=== PATIENT | male | born 1970 ===

== ENCOUNTER 2021-08-11 16:30 | Inpatient (IN) | payer MEDICARE, BC ==
[~2021-08-11] VITALS: Ht 172.7 cm; Wt 87.5 kg
[2021-08-11] VITALS (138 sets, daily range): BP systolic 102–143; BP diastolic 64–105; PULSE 93–115; TEMP 98.3–99.1; O2SAT 64–100
--- NOTE | 2021-08-11 17:15 | NUR ---
PATIENT ARRIVES. DR. CHADWICK NOTIFIED AND , NICHOLE, BROUGHT INTO THE ROOM
--- NOTE | 2021-08-11 18:05 | NUR ---
PATIENT LEAVES FOR OPERATING ROOM AT THIS TIME. DR. CHADWICK HAS DISCUSSED PROCEDURE WITH BOTH PATIENT AND . CONSENT SIGNED. TING WITH ANESTHESIA HERE AT THIS TIME WELL.
--- NOTE | 2021-08-11 19:27 | NUR ---
REPORT GIVEN TO SUDEEP JACKMAN. PATIENT STILL IN OPERATING ROOM
--- NOTE | 2021-08-11 19:45 | NUR ---
1935 PATIENT ARRIVED TO UNIT AT THIS TIME, CONNECTED TO MONITORS AND ORIENTED TO ROOM ASSESSMENT COMPLETED AT THIS TIME
[2021-08-12] VITALS (419 sets, daily range): BP systolic 99–123; BP diastolic 49–85; PULSE 89–115; TEMP 98.5–101.1; O2SAT 87–100
--- NOTE | 2021-08-12 | NUR ---
URINE OUTPUT ADEQUATE, NOTED DARK YELLOW TO HERMELINDA COLOR WITH SCANT AMOUNT OF BLOODY DRAINAGE FROM TIP OF PENIS, NOTED EDEMA AND EXCORATION REMAIN TO PENIS, CLEANSED WITH BATH
[2021-08-12 01:25] LABS: HEMATOCRIT 40.3 % (42.0-52.0); HEMOGLOBIN 13.5 g/dl (13.5-18.0); MEAN CELL VOLUME 81 fl (80.0-100.0); MEAN CORPUSCULAR HEMOGLOBIN 27 pg (27.0-31.0); MEAN CORPUSCULAR HGB CONC 34 g/dl (33.0-37.0); MEAN PLATELET VOLUME 9.4 fl (7.4-10.4); PLATELET COUNT 216 K/mm3 (130-400); RED BLOOD COUNT 4.96 M/mm3 (4.20-5.60); REDCELL DISTRIBUTION WIDTH-CV 13.2 % (11.5-14.5)
[2021-08-12 01:44] LABS: ALBUMIN 2.8 gm/dL (3.5-5.0); BILIRUBIN,TOTAL 1.8 mg/dL (0.2-1.2); CALCIUM 8.6 mg/dL (8.4-10.2); CREATININE, serum 1.37 mg/dL (0.72-1.25); POTASSIUM 3.7 mmol/L (3.5-4.5); TOTAL PROTEIN 6.9 gm/dL (6.2-8.1)
[2021-08-12 02:09] LABS: BAND 1 % (0-10); EOSINOPHIL 6 % (0-4); LYMPHOCYTE 2 % (20.0-51.0); NEUTROPHILS 87 % (42.0-75.2); PLATELET ESTIMATE NORMAL (NORMAL)
[2021-08-12 05:45] LABS: COLLECTION METHOD CATHETER
[2021-08-12 05:52] LABS: MUCOUS Present /lpf; PH 5 (5-8); SQUAMOUS EPITHELIAL 0-2 /hpf; URINE APPEARANCE Hazy; URINE BACTERIA Rare /hpf; URINE BILIRUBIN Negative (NEGATIVE); URINE BLOOD 3+ (NEGATIVE); URINE COLOR Yellow; URINE GLUCOSE Negative (NEGATIVE); URINE KETONE Trace (NEGATIVE); URINE LEUKOCYTE ESTERASE 2+ (NEGATIVE); URINE NITRATE Negative (NEGATIVE); URINE PROTEIN(semi-quant) 1+ (NEGATIVE); URINE RBC 20-50 /hpf
[2021-08-12 06:56] LABS: BASO # 0.1 K/mm3 (0.0-0.2); BASO % 0.5 % (0.0-2.0); EOS % 0.1 % (0-4.0); GRAN # 11.5 K/mm3 (1.4-6.5); GRAN % 86.6 % (42.2-75.2); HEMATOCRIT 43.3 % (42.0-52.0); HEMOGLOBIN 13.6 g/dl (13.5-18.0); LYMPH # 0.8 K/mm3 (1.2-3.4); LYMPH % 6.2 % (20.0-51.0); MEAN CORPUSCULAR HEMOGLOBIN 28 pg (27.0-31.0); MEAN CORPUSCULAR HGB CONC 31 g/dl (33.0-37.0); MEAN PLATELET VOLUME 9.5 fl (7.4-10.4); MONO # 0.8 K/mm3 (0.1-0.6); MONO % 6.2 % (1.7-9.3); PLATELET COUNT 169 K/mm3 (130-400); RED BLOOD COUNT 4.92 M/mm3 (4.20-5.60); REDCELL DISTRIBUTION WIDTH-CV 13.4 % (11.5-14.5)
[2021-08-12 06:57] LABS: MEAN CELL VOLUME 88 fl (80.0-100.0)
[2021-08-12 07:21] LABS: CALCIUM 7.8 mg/dL (8.4-10.2); CREATININE, serum 1.27 mg/dL (0.72-1.25); POTASSIUM 3.7 mmol/L (3.5-4.5)
--- NOTE | 2021-08-12 14:22 | NUR ---
REPORT CALLED TO SUDEEP DOUGLASS. PATIENT TAKEN UP TO ROOM 354. DANILO FROM SOCIAL WORK STATES THAT SHE WILL CALL WITH UPDATE ON ROOM TRANSFER.
--- NOTE | 2021-08-12 14:23 | NUR ---
Discussion with ; please use the assumed pain scale states "he will clinch his face, feet and legs" this will indicate pain. "Do not let him over eat, no coffee will cause diarrhea". does not allow corn in his diet. Catia: [phone]
--- NOTE | 2021-08-12 15:28 | NUR ---
Family Practice Md contacted patient's , Catia (ph#[phone]) to discuss discharge planning. Patient and Catia live in [place] and patient's primary care physician is Dr. Dan. Catia advised that patient was not on any normal prescriptions prior to hospital stay. Patient has a wheelchair, hospital bed, and sit to stand lift at home. Catia reported that home health evaluated patient recently and he currently is not able to stand at all. Catia advised her daughter, Yin (ph#[phone]) will be bringing in copy of DP-, which designates Catia then their two daughters, Yin and Eli. Catia advised they are looking at placement at a intermediate facility for rehab but ultimately believe patient will need intermediate designer care. Catia reported they were working on medicaid, however have too much money at this time due to an inheritance they recently received. Catia does not feel [facility] will be able to meet patient's needs but is interested in having referrals sent to the three SNFs in [place]. ELIU advised Catia that if the [place] facilities cannot accept or do not have intermediate designer care available, referrals will need to be sent out of town. ELIU contacted [facility] and faxed referral. ELIU contaced [facility] and was advised they do not accept TBI's. Discharge Plan: [facility] referrals pending.
--- NOTE | 2021-08-12 18:49 | NUR ---
PT LAYING IN BED AT THIS TIME. DENIES ANY PAIN. STATES HE DOES NOT NEED ANYTHING. NO FURTHER CONCERN WILL GIVE REPORT TO INDUSTRIAL RELATIONS ANALYST RN.
--- NOTE | 2021-08-12 19:01 | NUR ---
REPORT GIVEN TO SUDEEP RAYMOND .
--- NOTE | 2021-08-12 19:50 | NUR ---
Patient is in bed at 45 degrees and mostly on his rigth side. He is alert but partially oriented. VSS. No signs of pain He denies. Tele and pierson in place. Yellow clear output. Patient can not move the left side of his body, but independent for drinking and eating with his right side. Assessment completed, meds provided. No further needs at this time. Call [facility] within reach.
--- NOTE | 2021-08-12 21:00 | NUR ---
PT reports temp of 101. Tylenol provided.
[2021-08-13 01:03] VITALS: BP 117/57; PULSE 90; TEMP 99.3
[2021-08-13 04:32] VITALS: BP 114/62; PULSE 83; TEMP 97.8
[2021-08-13 06:41] LABS: BASO % 0.5 % (0.0-2.0); EOS # 0.1 K/mm3 (0.0-0.7); EOS % 0.6 % (0-4.0); GRAN # 6.4 K/mm3 (1.4-6.5); GRAN % 79.5 % (42.2-75.2); LYMPH # 0.8 K/mm3 (1.2-3.4); LYMPH % 9.8 % (20.0-51.0); MEAN CORPUSCULAR HGB CONC 33 g/dl (33.0-37.0); MEAN PLATELET VOLUME 10.1 fl (7.4-10.4); MONO # 0.7 K/mm3 (0.1-0.6); MONO % 8.9 % (1.7-9.3); PLATELET COUNT 170 K/mm3 (130-400); RED BLOOD COUNT 4.25 M/mm3 (4.20-5.60); REDCELL DISTRIBUTION WIDTH-CV 13.4 % (11.5-14.5)
--- NOTE | 2021-08-13 06:45 | NUR ---
Patient has been stable. He didnt have more caitlin temperature. All needs met. Shift report given to day nurse.
[2021-08-13 06:48] LABS: HEMATOCRIT 35.3 % (42.0-52.0); MEAN CELL VOLUME 83 fl (80.0-100.0); MEAN CORPUSCULAR HEMOGLOBIN 27 pg (27.0-31.0)
[2021-08-13 06:54] LABS: HEMOGLOBIN 11.6 g/dl (13.5-18.0)
[2021-08-13 07:01] LABS: CALCIUM 7.9 mg/dL (8.4-10.2); CREATININE, serum 0.9 mg/dL (0.72-1.25); POTASSIUM 3.1 mmol/L (3.5-4.5)
--- NOTE | 2021-08-13 07:12 | NUR ---
PT LAYING IN BED, CLOTH IN LEFT HAND, NO NEEDS AT THIS TIME
--- NOTE | 2021-08-13 08:12 | NUR ---
PT LAYING IN BED, CLOTH FOR LEFT HAND HAD FALLEN OUT OF GRASP, REPLACED IN HAND. PLACED TOWEL BETWEEN LEFT KNEE AND BED RAIL DUE TO DECREASE SENSITIVITY TO PRESSURE. PT SHOWS NO SIGN OF PAIN, ASKS FOR BREAKFAST, CHANGED TO NONSELECT TRAY FOR PT EASE. GOT PATIENT ICE WATER, CALL LIGHT IN PLACE. NO NEEDS AT THIS TIME.
[2021-08-13 08:18] VITALS: BP 100/56; PULSE 92; TEMP 98.1
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
[2021-08-13 12:01] VITALS: BP 106/82; PULSE 96; TEMP 97.6
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
--- NOTE | 2021-08-13 13:50 | NUR ---
[facility] declined the patient. ELIU faxed a referral to Janina Rojo of [facility], [facility], [facility] in [place], [facility] [place]. Awaiting screens.
--- NOTE | 2021-08-13 15:57 | NUR ---
Luciana, at [facility], reports that they have no issues accepting the patient for just a skilled stay, but could not if it is going to turn into long-term care. They are not able to take on any new long-term residents at this time. Luciana reports that the soonest they could take the patient is on Tuesday, but would prefer Tuesday.
--- NOTE | 2021-08-13 16:35 | NUR ---
Spoke with the patient's and she is ok with the patient going to [facility] and then coming home before a transition to LTC.
[2021-08-13 17:05] VITALS: BP 128/71; PULSE 61; TEMP 99.6
--- NOTE | 2021-08-13 19:40 | NUR ---
Patient is in bed, alert and oriented, stable, denies pain, nausea or vomiting, Assessment completed, meds provided. No further needs at this time, call light within reach.
[2021-08-13 20:18] LABS: CALCIUM 7.9 mg/dL (8.4-10.2); CREATININE, serum 0.96 mg/dL (0.72-1.25); POTASSIUM 3.7 mmol/L (3.5-4.5)
[2021-08-14 01:38] VITALS: BP 130/66; PULSE 97; TEMP 98.2
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
[2021-08-14 04:55] VITALS: BP 122/71; PULSE 102; TEMP 98.6
--- NOTE | 2021-08-14 06:50 | NUR ---
Report received from SUDEEP Hinojosa. Pt. resting in bed w/ eyes closed. Bed alarm on, call light and belongings in reach.
--- NOTE | 2021-08-14 06:51 | NUR ---
Patient has been stable along the night. He requested a lunch box at midnight. All needs met. Shift report given to day RN.
[2021-08-14 07:17] LABS: BASO # 0.1 K/mm3 (0.0-0.2); BASO % 0.7 % (0.0-2.0); EOS # 0.1 K/mm3 (0.0-0.7); EOS % 1.2 % (0-4.0); GRAN # 5.3 K/mm3 (1.4-6.5); GRAN % 70.9 % (42.2-75.2); HEMOGLOBIN 11.9 g/dl (13.5-18.0); LYMPH # 1.3 K/mm3 (1.2-3.4); LYMPH % 17.4 % (20.0-51.0); MEAN CELL VOLUME 81 fl (80.0-100.0); MEAN CORPUSCULAR HEMOGLOBIN 27 pg (27.0-31.0); MEAN CORPUSCULAR HGB CONC 34 g/dl (33.0-37.0); MEAN PLATELET VOLUME 10.1 fl (7.4-10.4); MONO # 0.7 K/mm3 (0.1-0.6); MONO % 9.1 % (1.7-9.3); PLATELET COUNT 191 K/mm3 (130-400); RED BLOOD COUNT 4.37 M/mm3 (4.20-5.60); REDCELL DISTRIBUTION WIDTH-CV 13.3 % (11.5-14.5)
[2021-08-14 07:19] LABS: HEMATOCRIT 35.4 % (42.0-52.0)
[2021-08-14 07:27] VITALS: BP 111/67; PULSE 93; TEMP 99
[2021-08-14 07:42] LABS: CALCIUM 8.2 mg/dL (8.4-10.2); CREATININE, serum 0.88 mg/dL (0.72-1.25); PHOSPHOROUS 1.4 mg/dL (2.3-4.7); POTASSIUM 3.5 mmol/L (3.5-4.5)
--- NOTE | 2021-08-14 08:19 | NUR ---
[facility] individuals under 65
[2021-08-14 11:26] VITALS: BP 112/64; PULSE 95; TEMP 99.3
--- NOTE | 2021-08-14 11:50 | NUR ---
Pt. progressing w/ plan of care. Pt. denies pain. Pt. ate a moderate amount of breakfast this AM. Dr. Arora in to round on patient this AM. Pt.'s Catia called, this RN updated Catia w/ plan of care. Pt. has been repositioned on his right side and he reports he is comfortable. Frequent rounds in place, call light in reach. Needs addressed. Cabrera cath draining clear, yellow urine.
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
[2021-08-14 17:05] VITALS: BP 134/66; PULSE 97; TEMP 98.3
--- NOTE | 2021-08-14 17:33 | NUR ---
[facility] [place] [facility] and can admit the patient on Tuesday for a SNF stay. Patient notified, notified. is very confused surrounding what the patient's care will look like post dc. States " when he he supposed to have the next procedue with Dr. Bishop and is wanting a face to face conversation with the hospitalist, Dr. Bishop and myself. Informed her that i could arrange a meeting with her, the hospitalist and myself but that i could not get Dr. Bishop here. She verbalized her understanding of this and is coming up to the hospital. Vincent and Rn Addis notified. RN contacted urology and obtained information about the patient's follow up appointment. Unable to obtain meeting with LIDIA Dominguez, however it is reported that the patient's follow up appointment with Dr. Bishop is scheduled for Sep 08 at 1500 here at [facility]. The patients is provided this information and is ok with this plan. [facility]
--- NOTE | 2021-08-14 20:00 | NUR ---
Initial shift assessment done- Alert to name and birthdate, does not answer to questions about where he is or why he is here,does follow commands, Cabrera to DD with yellow urine w/sediment, repositioned, watching TV, denies pain when asked-no other requests.
[2021-08-14 20:27] VITALS: BP 137/81; PULSE 98; TEMP 98.5
[2021-08-15 00:29] VITALS: BP 127/78; PULSE 90; TEMP 98.8
[2021-08-15 04:32] VITALS: BP 123/83; PULSE 92; TEMP 98.6
--- NOTE | 2021-08-15 05:20 | NUR ---
Quiet night- does reposition himself on his side during the night-- was incontinent of a large BM last night- cleaned up, VSS
[2021-08-15 06:44] LABS: BASO # 0.1 K/mm3 (0.0-0.2); BASO % 0.6 % (0.0-2.0); EOS # 0.2 K/mm3 (0.0-0.7); EOS % 2.2 % (0-4.0); GRAN # 5.6 K/mm3 (1.4-6.5); HEMOGLOBIN 12.2 g/dl (13.5-18.0); LYMPH # 1.9 K/mm3 (1.2-3.4); LYMPH % 21.8 % (20.0-51.0); MEAN CELL VOLUME 83 fl (80.0-100.0); MEAN CORPUSCULAR HEMOGLOBIN 28 pg (27.0-31.0); MEAN CORPUSCULAR HGB CONC 33 g/dl (33.0-37.0); MEAN PLATELET VOLUME 9.5 fl (7.4-10.4); MONO # 0.8 K/mm3 (0.1-0.6); MONO % 9.2 % (1.7-9.3); PLATELET COUNT 227 K/mm3 (130-400); RED BLOOD COUNT 4.44 M/mm3 (4.20-5.60); REDCELL DISTRIBUTION WIDTH-CV 13.5 % (11.5-14.5)
[2021-08-15 06:53] LABS: HEMATOCRIT 36.8 % (42.0-52.0)
[2021-08-15 06:55] LABS: CALCIUM 8.2 mg/dL (8.4-10.2); CREATININE, serum 0.75 mg/dL (0.72-1.25); MAGNESIUM 1.9 mg/dL (1.6-2.6); PHOSPHOROUS 3.4 mg/dL (2.3-4.7); POTASSIUM 3.9 mmol/L (3.5-4.5)
--- NOTE | 2021-08-15 06:57 | NUR ---
Report received from SUDEEP Moy. Pt. resting in bed w/ eyes closed. Call light in reach, bed alarm on.
[2021-08-15 09:34] VITALS: BP 109/55; PULSE 92; TEMP 98.3
[2021-08-15 11:25] VITALS: BP 126/80; PULSE 95; TEMP 98.2
[2021-08-15 15:40] VITALS: BP 130/75; PULSE 91; TEMP 98
--- NOTE | 2021-08-15 18:30 | NUR ---
Pt. progressing w/ plan of care. No major changes today. Pt. reports feeling OK and denied pain throughout the shift. IV antibiotic and scheduled meds administered per order. Pt. had a BM today, worked with physical therapy today, linens changed, and received a bed bath. Bed alarm on, call light and belongings in reach.
[2021-08-15 20:10] VITALS: BP 122/68; PULSE 98; TEMP 98.8
--- NOTE | 2021-08-15 20:30 | NUR ---
Initial shift assessment done- denies pain, alert/more talkative tonight- follows commands, left side flaccid, confused as to date/time/year-pierson with clear mari urine at this time--SCD,s on,
[2021-08-16 00:19] VITALS: BP 135/84; PULSE 88; TEMP 98.4
[2021-08-16 04:19] VITALS: BP 132/80; PULSE 87; TEMP 97.9
--- NOTE | 2021-08-16 05:00 | NUR ---
Quiet night- sleeping well, VSS, repositions self in bed,, was incontinent of large soft stool--cleaned up, bed changed- no further needs at this time.
[2021-08-16 06:48] LABS: HEMATOCRIT 37.6 % (42.0-52.0); HEMOGLOBIN 12.7 g/dl (13.5-18.0); MEAN CELL VOLUME 81 fl (80.0-100.0); MEAN CORPUSCULAR HEMOGLOBIN 27 pg (27.0-31.0); MEAN CORPUSCULAR HGB CONC 34 g/dl (33.0-37.0); MEAN PLATELET VOLUME 9.5 fl (7.4-10.4); PLATELET COUNT 257 K/mm3 (130-400); RED BLOOD COUNT 4.64 M/mm3 (4.20-5.60); REDCELL DISTRIBUTION WIDTH-CV 13.5 % (11.5-14.5)
[2021-08-16 06:57] LABS: CALCIUM 8.3 mg/dL (8.4-10.2); CREATININE, serum 0.71 mg/dL (0.72-1.25); PHOSPHOROUS 3.4 mg/dL (2.3-4.7)
--- NOTE | 2021-08-16 07:18 | NUR ---
PATIENT AWAKE IN BED REQUESTING BREAKFAST. I HAVE CALLED DOWN AND ALTERED MEAL AND THEY WILL BRING BREAKFAST UP. NO FURTHER NEEDS AT THIS TIME.
[2021-08-16 07:42] VITALS: BP 140/84; PULSE 91; TEMP 98.1
[2021-08-16 08:30] LABS: EOSINOPHIL 2 % (0-4); LYMPHOCYTE 27 % (20.0-51.0); NEUTROPHILS 62 % (42.0-75.2); PLATELET ESTIMATE NORMAL (NORMAL)
--- NOTE | 2021-08-16 09:56 | NUR ---
PATIENT ASSESSMENT COMPLETED. HE CAN ANSWER SIMPLE QUESTIONS BUT CAN'T HAVE A CONVERSATION. LEFT ARM AND LEG ARE CONTRACTED WITH LITTLE MOVEMENT, HE IS ABLE TO USE RIGHT ARM AND LEG TO PARTIAL HELP MOVE AROUND IN THE BED. HIS GROIN AND SCROTOM ARE RED. POWDER IS PROVIDED PER PRN ORDERS.
[2021-08-16 12:39] VITALS: BP 149/95; PULSE 95; TEMP 97.7
--- NOTE | 2021-08-16 13:00 | NUR ---
PATIENT IS CHANGED OF LARGE LOOSE BOWEL MOVEMENT. HE IS NOT ABLE TO VERBALIZE THAT HE HAD THIS. POWDER APPLIED
[2021-08-16 16:30] VITALS: BP 126/75; PULSE 94; TEMP 98.4
[2021-08-16 20:36] VITALS: BP 144/76; PULSE 95; TEMP 98.8
[2021-08-17] VITALS: BP 126/78; PULSE 90; TEMP 98.1
[2021-08-17 04:15] VITALS: BP 142/69; PULSE 93; TEMP 98.2
[2021-08-17 07:34] LABS: HEMATOCRIT 38.5 % (42.0-52.0); HEMOGLOBIN 12.9 g/dl (13.5-18.0); MEAN CELL VOLUME 81 fl (80.0-100.0); MEAN CORPUSCULAR HEMOGLOBIN 27 pg (27.0-31.0); MEAN CORPUSCULAR HGB CONC 34 g/dl (33.0-37.0); MEAN PLATELET VOLUME 9.4 fl (7.4-10.4); PLATELET COUNT 309 K/mm3 (130-400); RED BLOOD COUNT 4.73 M/mm3 (4.20-5.60); REDCELL DISTRIBUTION WIDTH-CV 13.2 % (11.5-14.5)
[2021-08-17 07:46] LABS: CREATININE, serum 0.98 mg/dL (0.72-1.25); POTASSIUM 3.9 mmol/L (3.5-4.5)
[2021-08-17 08:17] VITALS: BP 132/77; PULSE 97; TEMP 97.9
--- NOTE | 2021-08-17 08:25 | NUR ---
Clinical updates faxed to [facility]. Patient's nurse contacted for a Covid swab
[2021-08-17 08:49] LABS: BAND 3 % (0-10); EOSINOPHIL 1 % (0-4); LYMPHOCYTE 18 % (20.0-51.0); METAMYELOCYTE 1 % (0-0); NEUTROPHILS 75 % (42.0-75.2); PLATELET ESTIMATE NORMAL (NORMAL)
--- NOTE | 2021-08-17 09:36 | NUR ---
Pt assessment complete. Pt is laying in bed upon entry, he is alert. Denies any pain but yells out when being moved in bed. No SOB, currently on RA. Discussed POC with patient. Pt incontinent of a soft formed BM. No needs at this time. Bed alarm in place.
[2021-08-17] MEDS ORDERED: CIPRO 500MG TA500 MG PO ×2 (10:09)
[2021-08-17] MEDS ORDERED: DESENEX TP ×2 (10:10)
--- NOTE | 2021-08-17 10:22 | NUR ---
The patient is to discharge today, 08/17, to [facility] for a skilled stay. Transportation was scheduled at 1130, via [facility]. ELIU informed the patient's RN and his his , Catia, of the time. They were both agreeable to the time. SW also read the IM form outloud to Catia over the phone. Catia verbalized understanding and gave SW approval to sign the form on her behalf. No additional needs at this time.
[2021-08-17 10:30] VITALS: BP 132/77; PULSE 97; TEMP 97.9
--- NOTE | 2021-08-17 11:24 | NUR ---
IV to L hand dc'd catheter tip intact. Report given to Janina SHEETS at this time. Pt wheeled out by a staff member of facility.
== END 2021-08-17 11:25 | DRG 854 ==
LOC: ICU 16:30 → MEDICAL 08-12 14:21
PROVIDERS: Family Medicine; Physician Assistant; Student in an Organized Health Care Education/Training Program; Urology; ADMIT Internal Medicine
PROC: 0T768DZ Dilation of Right Ureter with Intraluminal Device, Via Natural or Artificial Opening Endoscopic (ICD-10-PCS; principal; 2021-08-11 18:15)
PROC: BT1DYZZ Fluoroscopy of Right Kidney, Ureter and Bladder using Other Contrast (ICD-10-PCS; 2021-08-11 18:15)
DX: A41.9 Sepsis, unspecified organism (principal); N17.9 Acute kidney failure, unspecified; N20.1 Calculus of ureter; I69.954 Hemiplegia and hemiparesis following unspecified cerebrovascular disease affecting left non-dominant side; Z87.891 Personal history of nicotine dependence; E87.6 Hypokalemia; R32 Unspecified urinary incontinence; R41.3 Other amnesia; D53.9 Nutritional anemia, unspecified; E83.39 Other disorders of phosphorus metabolism
CPT/HCPCS: 99223-AI; 99231-AI; 99232-AI; 99233-AI; 99239; C1769; C1894; C2617; J0690; J1650; J2405; J2543; J2704; J3010; J3370; J7030; J7050; J7120; Q9967

== ENCOUNTER 2021-09-08 08:35 | Day surgery (SDC) | payer MEDICARE, BC ==
[~2021-09-08] VITALS: Ht 172.7 cm; Wt 84.6 kg
[~2021-09-08 08:35] MED LIST: CIPRO 500MG TA500 MG PO; DESENEX TP
--- NOTE | 2021-09-08 09:20 | NUR ---
Patient arrived to the waiting room, escorted by one [facility] staff member. Report was obtained from staff, including medications, weight/height, allergies and previous fluid/solid intake. Patient has a pierson catheter and is complaining of lower back pain. No redness noted to the area. Patient is in a wheelchair and has issues moving the left side of his body. Patient was escorted back to bay #5 by SUDEEP Olguin and Bhanu RN. Lung sounds are clear. Heart is in sinus rythm. Bowel sounds present in x4 quadrants. Patient was transferred into bed by a +2 stand a pivot manuver. Patient was assited with undressing and placed in a clean gown. Patient was also given a boost in bed to help promote comfort. Warm blanket provided. Non-slip socks are on. Side rails x2 and call light is in his hand. IV was started in his L wrist on first attempt with #20. LR is infusing without difficulty. Site was wrapped in a bandage. First and last name + verified with his verbally on the phone. She gave a verbal consent for the procedure. Vitals obtianed. Will continue to monitor.
[2021-09-08 09:49] VITALS: BP 137/83; PULSE 112; TEMP 98.3
[2021-09-08] MEDS ORDERED: TYLENOL 500MG500 MG PO (10:30)
[2021-09-08] MEDS ORDERED: TYLENOL 325MG325 MG PO (10:31)
[2021-09-08] MEDS ORDERED: LOTSPY TOP (10:32)
--- NOTE | 2021-09-08 11:33 | NUR ---
Patient was taken back to the OR.
[2021-09-08 12:45] VITALS: BP 129/86; PULSE 85; TEMP 97.6
--- NOTE | 2021-09-08 12:45 | NUR ---
Patient arrived on cart, escorted by Dunia SHEETS. Patient is alert and can answer questions. He was able to tolerate ice water and pepsi well. Vitals obtained. Will continue to monitor. Denies pain.
--- NOTE | 2021-09-08 12:56 | NUR ---
Patient is eating a warm chocolate muffin and is tolerating it well. Side rails x2. Call patton is at bedside.
[2021-09-08 13:00] VITALS: BP 136/87; PULSE 85
--- NOTE | 2021-09-08 13:00 | NUR ---
Vitals obtained. Patient finished his muffin and is tolerating it well. He states he is comfortable.
[2021-09-08 13:12] VITALS: BP 129/863; PULSE 88; TEMP 97.5
--- NOTE | 2021-09-08 13:30 | NUR ---
IV DISCONTINUED AND PRESSURE BANDAGE APPLIED. CATHETER TIP INTACT. NO REDNESS OR SWELLING NOTED. PATIENT STATES NO PAIN AT THIS TIME.
--- NOTE | 2021-09-08 14:00 | NUR ---
PATIENT WAS ESCORTED OUT VIA WHEELCHAIR TO MAIN PATIENT ENTRENCE BY SUDEEP GROSS TO MEET TRANSPORT TO [facility]. RN GAVE DISCHARGE INFORMATION AND BAG WITH PERSOAL BELONGINGS TO TRANSPORT. PATIENT IS SITTING ON HIS BLUE BLANKET
== END 2021-09-08 13:30 | disposition home or self-care (01) ==
LOC: SDCO 08:35
DX: N20.1 Calculus of ureter (principal); H54.40 Blindness, one eye, unspecified eye; G81.94 Hemiplegia, unspecified affecting left nondominant side; Z86.73 Personal history of transient ischemic attack (TIA), and cerebral infarction without residual deficits
CPT/HCPCS: C1769; J0690; J1100; J2405; J3010; J7120